=== PATIENT | female | born 1990 ===

== ENCOUNTER → 2017-01-12 | Outpatient (CLI) | payer BC ==
[2017-01-12 19:36] LABS: BASO % 0.6 % (0.0-1.0); EOS # 0.1 K/mm3 (0.0-0.50); EOS % 1.7 % (0.0-3.0); LARGE UNSTAINED CELL # 0.2 K/mm3 (0.0-0.4); LARGE UNSTAINED CELL % 2.3 % (0.0-4.0); LYMPH # 2.9 K/mm3 (1.5-6.5); LYMPH % 41.6 % (24.0-44.0); MEAN CORPUSCULAR HEMOGLOBIN 30.7 pg (27.0-33.0); MEAN CORPUSCULAR HGB CONC 34.2 g/dl (32.0-36.5); MEAN CORPUSCULAR VOLUME 89.6 fl (80.0-96.0); MONO # 0.3 K/mm3 (0.0-0.8); NEUTROPHILS # 3.5 K/mm3 (1.8-7.7); NEUTROPHILS % 49.8 % (36.0-66.0); PLATELET COUNT, AUTOMATED 427 k/mm3 (150-450); RED CELL DISTRIBUTION WIDTH 12.4 % (11.5-14.5); WHITE BLOOD COUNT 6.9 K/mm3 (4.0-10.0)
[2017-01-12 19:48] LABS: FREE T4 1.11 NG/DL (0.76-1.46)
== END ==
LOC: M WUC 17:09
PROVIDERS: ATTEND Physician Assistant Medical
DX: R53.83 Other fatigue (principal); E55.9 Vitamin D deficiency, unspecified